=== PATIENT | female | born 2005 | race Caucasian/White ===

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

== ENCOUNTER 2025-01-06 10:46 | Emergency (ER) | payer OTHER, SELFPAY ==
--- NOTE | 2025-01-06 10:56 | ED_ITS ---
HPI - General Adult General Chief complaint: Nausea/Vomiting/Diarrhea Stated complaint: Vomiting/light headed Time Seen by Provider: 01/06/25 11:01 Source: patient and RN notes reviewed Mode of arrival: ambulatory Limitations: no limitations History of Present Illness HPI narrative: 19-year-old female presents with concern for nausea, vomiting, lightheadedness. Reports 2 days of symptoms. Reports vomiting yesterday, denies vomiting today. She reports she feels lightheaded when she stands up. She reports chills and sweats yesterday. She denies diarrhea or abdominal pain. Denies upper respiratory symptoms. MD complaint: Nausea and vomiting Related Data Home Medications ?Medication ?Instructions ?Recorded ?Confirmed ?Last Taken ?Type Lexapro 10 mg PO DAILY 05/01/19 01/06/25 Unknown History Allergies Allergy/AdvReac Type Severity Reaction Status Date / Time Penicillins Allergy Unknown Unknown Verified 01/06/25 11:03 Review of Systems Review of Systems: CONSTITUTIONAL: Denies malaise or fever. Reports sweats and chills ENT: Denies rhinorrhea, congestion, sinus pain, otalgia or sore throat. CARDIOVASCULAR: Denies chest pain, palpitations, or edema. RESPIRATORY: Denies cough or dyspnea. GASTROINTESTINAL: Denies abdominal pain, diarrhea, bloody, or mucous stools. Reports nausea and vomiting GENITOURINARY: Denies dysuria or hematuria. MUSCULOSKELETAL: Denies myalgia. NEUROLOGIC: Denies headache. Reports lightheadedness All systems reviewed & are unremarkable except as noted in HPI and below PMFSH Social History Social History Gender identity (if verbalized by the patient): Female Comments At time of signature, agree with nursing past medical, surgical, social and family history. There is no relevant family history pertinent to the presenting complaint Exam Narrative: GENERAL: Well-appearing, well-nourished, and in no acute distress. HEAD: Normocephalic, atraumatic. EYES: PERRLA, conjunctivae clear, and EOMI. ENT: Nares clear, turbinates pink, no rhinorrhea or epistaxis. Mucous membranes moist. Oropharynx without edema, erythema, or lesions. Tonsils not enlarged and without exudate. NECK: Supple. No lymphadenopathy CHEST: Speaks in full sentences. No respiratory distress. HEART: Regular rate and rhythm. ABDOMEN: Soft, flat, nondistended, nontender. No guarding, rebound tenderness, or rigidity. No pulsatile masses. Bowel sounds present in all four quadrants. No periumbilical tenderness. SKIN: Warm, dry, no rash. NEURO: Alert and oriented x3. No focal deficits PSYCH: Normal mood and affect Course Course Emergency Course: Patient is aware of diagnosis, understands and agrees to treatment plan. Anticipatory guidance given. Patient agrees to follow-up as directed and is aware of reasons to seek care at the emergency department. Portions of this record may have been created with voice recognition software Level of Care: [facility] Visit Vital Signs Vital signs: Reviewed. Medical Decision Making MDM Narrative Medical decision making narrative: I evaluated this patient in the [facility]. History is obtained from patient who is an independent historian and physical exam was performed.? Available medical records were reviewed. ? Exam findings testing show no acute concerns or changes; patient is non-toxic appearing and is in no distress. ? Differential diagnosis and treatment plan were discussed with the patient. Patient agrees with discussion and after shared medical decision making agrees with plan of care. All questions were answered to the patient's satisfaction. Patient is appropriate for outpatient treatment and follow-up. Critical Care Time Critical Care Time Critical Care Time: No Discharge Plan Discharge Clinical Impression: Nausea and vomiting Patient Disposition: Home Condition: Stable Instructions: Acute Nausea and Vomiting (ED) Additional Instructions: Stay hydrated. Take small sips of fluid containing electrolytes frequently. You should go to the hospital if you experience return of persistent nausea and vomiting that does not resolve and does not allow you to tolerate any food or fluids, persistent fevers for greater than 2-3 more days, increasing abdominal pain that persists despite medications, persistent diarrhea, dizziness, syncope (fainting), or for any other concerns. Patient Language: Citizen Of [place] Prescriptions: New ondansetron 4 mg tablet,disintegrating 4 mg PO Q6H PRN (Reason: nausea and vomiting) Qty: 6 0RF No Action Lexapro 10 mg PO DAILY Follow-up/Referrals: PHYSICIAN,WET ROASTER [Primary Care Provider] - Stand Alone Forms: Work/School Release IP Time of Disposition: 11:08
[2025-01-06 10:58] VITALS: BP 120/74; PULSE 76; RESP 16; TEMP 36.8; O2SAT 99
== END 2025-01-06 11:22 | disposition home or self-care (01) ==
PROVIDERS: Emergency Provider Nurse Practitioner
DX: R11.2 Nausea with vomiting, unspecified (principal)
CPT/HCPCS: 99213; G0463

== ENCOUNTER 2025-01-25 16:45 | Emergency (ER) | payer OTHER, SELFPAY ==
--- NOTE | 2025-01-25 16:47 | ED.GENADULT ---
HPI - General Adult General Chief complaint: Upper Respiratory Infection Stated complaint: fever symptoms, fatigue, headache Time Seen by Provider: 01/25/25 16:47 Source: patient Mode of arrival: ambulatory Limitations: no limitations History of Present Illness HPI narrative: Pt is a 19 y/o female presenting with multiple complaints. Pt reports intermittent headache, constant fatigue, hot flashes, irritability x several weeks. Reports missed period. Reports negative at home tests x 4, last test today. Denies any unintentional weight loss, loss of appetite, dietary changes, blood in stool. Took ibuprofen this morning with relief from headache. Denies recent tick bite. No known direct sick contacts. Does not have PCP. No additional complaints Related Data Home Medications ?Medication ?Instructions ?Recorded ?Confirmed ?Last Taken ?Type Lexapro 10 mg PO DAILY 05/01/19 01/06/25 Unknown History Allergies Allergy/AdvReac Type Severity Reaction Status Date / Time Penicillins Allergy Unknown Unknown Verified 01/25/25 16:48 Review of Systems Review of Systems: CONSTITUTIONAL: Reports fatigue, hot flashes, denies body aches, fever, chills, or sweats. EYES: Denies visual changes, redness, or discharge. ENT: Denies rhinorrhea, congestion, sore throat, or otalgia. CARDIOVASCULAR: Denies chest pain, palpitations, or edema. RESPIRATORY: Denies cough or dyspnea. GASTROINTESTINAL: Denies abdominal pain, nausea, vomiting, or diarrhea. GENITOURINARY:Reports missed perior Denies dysuria or hematuria. SKIN: Denies rash, itching, or wounds. MUSCULOSKELETAL: Denies back pain, joint pain, or myalgia. NEUROLOGIC: Reports headache, denies numbness, tingling, or weakness. PSYCH: Reports irritability Denies depression or anxiety. All systems reviewed & are unremarkable except as noted in HPI and below Psychiatric: Psychiatric: Denies homicidal ideation and Denies suicidal ideation Endocrine: Endocrine: Denies polydipsia and Denies polyuria Hematologic/Lymphatic: Hematologic/Lymphatic: Denies no additional hematologic/lymphatic complaints, Denies easy bleeding and Denies easy bruising PMFSH Social History Social History Gender identity (if verbalized by the patient): Female Exam Narrative: GENERAL: Well-appearing, well-nourished, and in no acute distress. HEAD: Normocephalic, atraumatic. EYES: EOMI. No redness or drainage. Conjunctivae normal. ENT: Mucous membranes pink and moist. Nares clear. No rhinorrhea. TMs normal bilaterally. Throat normal. Uvula midline. NECK: Normal AROM. Supple. No lymphadenopathy. CHEST: No respiratory distress. Clear to auscultation. HEART: Regular rate and rhythm. No murmur appreciated. Normal peripheral pulses. ABDOMEN: Soft, nontender, nondistended, normal active bowel sounds. MUSCULOSKELETAL: No bony tenderness. EXTREMITIES: Normal range of motion. No edema. SKIN: Warm, dry, no rash. Capillary refill normal. Normal skin turgor. NEURO: No focal deficits. Alert and oriented x3. Gait steady. PSYCH: Normal affect. No signs of depression or anxiety. Course Course Level of Care: Express Care Visit Vital Signs Vital signs: Vital Signs Temperature 97.8 F 01/25/25 16:57 Pulse Rate 66 01/25/25 16:57 Respiratory Rate 16 01/25/25 16:57 Blood Pressure 132/70 01/25/25 16:57 Pulse Oximetry 100 01/25/25 16:57 Temperature 97.8 F 01/25/25 16:57 Pulse Rate 66 01/25/25 16:57 Respiratory Rate 16 01/25/25 16:57 Blood Pressure 132/70 01/25/25 16:57 Pulse Oximetry 100 01/25/25 16:57 Medical Decision Making Vital Signs Vital Signs: Vital Signs Temperature 97.8 F 01/25/25 16:57 Pulse Rate 66 01/25/25 16:57 Respiratory Rate 16 01/25/25 16:57 Blood Pressure 132/70 01/25/25 16:57 Pulse Oximetry 100 01/25/25 16:57 Temperature 97.8 F 01/25/25 16:57 Pulse Rate 66 01/25/25 16:57 Respiratory Rate 16 01/25/25 16:57 Blood Pressure 132/70 01/25/25 16:57 Pulse Oximetry 100 01/25/25 16:57 Lab Data Lab results reviewed: Yes I reviewed the patient's lab results. Lab results narrative: Negative mono Labs: Lab Results 01/25/25 Range/Units 17:25 POC Capillary Glucose 78 (65-105) mg/dl Discharge Plan Discharge Clinical Impression: Missed period, Irritable Fatigue Qualifiers: Fatigue type: unspecified Qualified Code(s): R53.83 - Other fatigue Headache Qualifiers: Headache type: unspecified Headache chronicity pattern: episodic headache Intractability: not intractable Qualified Code(s): R51.9 - Headache, unspecified Patient Disposition: Home Condition: Stable Instructions: Fatigue (ED) Additional Instructions: Go straight to ER should your symptoms become worse or should any new symptoms develop Patient Language: [place] Prescriptions: No Action Lexapro 10 mg PO DAILY Follow-up/Referrals: Wei Villasenor MD [Physician] - 01/26/25 UNKNOWN,DOCTOR [Non-Staff] - Time of Disposition: 17:27
[2025-01-25 16:57] VITALS: BP 132/70; PULSE 66; RESP 16; TEMP 36.6; O2SAT 100
[2025-01-25 17:36] LABS: EDMONONEGPOS Negative (Negative)
== END 2025-01-25 17:44 | disposition home or self-care (01) ==
LOC: EXPGOSH 16:49
PROVIDERS: Emergency Provider Registered Nurse
DX: N91.2 Amenorrhea, unspecified (principal); R45.4 Irritability and anger; R53.83 Other fatigue; R51.9 Headache, unspecified
CPT/HCPCS: 36416; 82948; 86308; 99212; G0463